=== PATIENT | male | born 1935 | race Caucasian/White ===

== ENCOUNTER 2016-05-18 11:15 | Day surgery (SDC) | payer MEDICARE, OTHER ==
[2016-05-17 11:08] VITALS: Ht 175.3 cm; Wt 82.0 kg
[~2016-05-18] VITALS: Ht 175.3 cm; Wt 82.0 kg
[2016-05-18] VITALS (25 sets, daily range): BP systolic 135–190; BP diastolic 63–97; PULSE 66–106; RESP 14–19
[~2016-05-18 11:15] MED LIST: CARV12.598 PO; FINA5TAB4 PO; LOSA100T47 PO; MITOMYCIN 40 MG VIAL IS ONE; ONDANSETRON 4 MG INJ ONE; RAMI5CAP46 PO; TRAM100T8 PO
--- NOTE | 2016-05-18 11:57 | RADRPT ---
PROCEDURE: XR Chest. CLINICAL INDICATION: Preop. TECHNIQUE: Single frontal view of the chest was obtained COMPARISON: Chest x-ray 05/17/2013 08:59 a.m. FINDINGS: The soft tissues are normal. There are degenerative osteophytes in the thoracic spine. The heart, cardiomediastinal silhouette and hilar structures are normal. The pulmonary vasculature is normal. T here is a left-sided aorta. The lungs are clear. The costophrenic angles are normal. IMPRESSION: 1. Stable chest x-ray with no evidence of active cardiopulmonary disease. RPTAT:AAJJ Physician Phan Date Time Electronically viewed and signed by Ra Schwartz Physician on 05/18/2016 11:57 JEAN/
--- NOTE | 2016-05-18 12:07 | HPN ---
Date/Time of Note Date/Time of Note DATE: 05/18/16 TIME: 12:07 Interval H&P Admission Note Pt. seen H&P reviewed: No system changes DYLAN BAILEY MD May 18, 2016 12:07
[2016-05-18] MEDS ORDERED: SODIUM CHLORIDE 0.9% IRR SCH ×2 (13:30)
[2016-05-18] MEDS ORDERED: MITOMYCIN 40 MG IRR SCH ×2 (13:30)
[2016-05-18] MEDS ORDERED: MIDAZOLAM 1 MG/ML 2 ML INJ ONE (15:59)
[2016-05-18] MEDS ORDERED: ONDANSETRON 4 MG INJ IV PRN ×2 (16:00→21:30)
[2016-05-18] MEDS ORDERED: CIPROFLOXACIN 400MG/D5W 200 ML IVPB ONE (16:00)
[2016-05-18] MEDS ORDERED: hydrALAzine 20 MG INJ IV PRN (16:00)
[2016-05-18] MEDS ORDERED: MEPERIDINE 25 MG INJ IV PRN (16:00)
[2016-05-18] MEDS ORDERED: FENTAnyl 50 MCG/ML VIAL ONE (16:00)
[2016-05-18] MEDS ORDERED: DIPHENHYDRAMINE 50 MG INJ IV PRN (16:00)
[2016-05-18] MEDS ORDERED: LABETALOL HCL 20MG INJ IV PRN (16:00)
[2016-05-18] MEDS ORDERED: HYDROmorphONE (0.2 MG/ML) 10ML SYG IV PRN ×2 (16:00)
[2016-05-18] MEDS ORDERED: FENTAnyl 50 MCG/ML VIAL IV PRN (16:00)
[2016-05-18] MEDS ORDERED: GLYCOPYRROLATE 0.4 MG INJ ONE (17:33)
[2016-05-18] MEDS ORDERED: ETOMIDATE 20 MG INJ ONE (17:33)
[2016-05-18] MEDS ORDERED: ROCURONIUM 50 MG INJ ONE (17:33)
[2016-05-18] MEDS ORDERED: NEOSTIGMINE 3 MG/3 ML SYRINGE ONE (17:33)
[2016-05-18] MEDS ORDERED: LIDOCAINE 2% (SDV) 5 ML INJ ONE (17:33)
[2016-05-18] MEDS ORDERED: CIPROFLOXACIN 400MG/D5W 200 ML ONE (17:34)
[2016-05-18] MEDS ORDERED: HYDROCODONE/APAP (5/325) TAB PO PRN (18:00)
--- NOTE | 2016-05-18 18:26 | OPR ---
DATE OF OPERATION: 05/18/2016 PREOPERATIVE DIAGNOSIS: Recurrent bladder tumor. POSTOPERATIVE DIAGNOSIS: Recurrent bladder tumor. Pending pathology report. OPERATION PERFORMED: Cystoscopy, transurethral resection and fulguration of bladder tumors and intr avesical instillation of 40 mg of mitomycin C with 50 mL of sterile water. TECHNIQUE: The patient was brought to the operating room. General anesthesia was induced. The pat ient was positioned in the lithotomy position. The genital area was prepped and draped in the usual sterile manner. The patient received 400 mg of Cipro IV at the start of the procedure. Time out w as done. Patient was identified by his name, date and the procedure. Then, #26 Lao bipola r resectoscope sheath was introduced under direct vision through the penile urethra all the way to t he bladder. Once in the bladder, the area that is suspicious for the tumors was identified and they were mostly located toward the base of the bladder on the right side and also one spot on the anter ior left side. Then, using the resectoscope loop, all these areas were resected and the edges and t he bases electrocoagulated. Good hemostasis was obtained. The ureteral orifices were away from the area of the resection. At the end of the procedure, the bladder was inspected and there were no ad ditional areas that are suspicious and then I did empty the bladder. Then I inserted an 18-Lao F oley catheter, inflated the balloon with 10 mL of sterile water. Then through the Peña catheter, I instilled the mitomycin C and then clamped the catheter and connected the catheter to a drainage ba g, but the catheter would not drain since it is clamped at the Y-shaped area and then the patient wa s transferred to the recovery room in stable and satisfactory condition. He will be turning on each side for 15 minutes for the next 2 hours and then the bladder will be drained and the catheter lisa delores and hopefully he will be able to urinate and go home. Dictated By: DYLAN RICHTER/INGE Conf#: [id number] DID#: [id number]
[2016-05-18] MEDS ORDERED: ONDANSETRON 4 MG INJ ONE (21:08)
== END 2016-05-18 21:30 | disposition home or self-care (01) ==
LOC: SDS 11:15
PROVIDERS: ATTEND Urology
DX: N30.00 Acute cystitis without hematuria (principal); N30.20 Other chronic cystitis without hematuria; N32.89 Other specified disorders of bladder; I25.10 Atherosclerotic heart disease of native coronary artery without angina pectoris; E78.5 Hyperlipidemia, unspecified; I10 Essential (primary) hypertension; E66.01 Morbid (severe) obesity due to excess calories; Z68.26 Body mass index [BMI] 26.0-26.9, adult; Z88.0 Allergy status to penicillin
CPT/HCPCS: 71010; 88104; 88305; J0360; J0744; J1170; J2250; J2405; J2710; J3010; J9280